=== PATIENT | female | born 1985 | race Two or more races ===

== ENCOUNTER → 2019-06-21 | Outpatient (CLI) | payer MEDICAID ==
[~2019-06-21] VITALS: Ht 157.5 cm; Wt 72.6 kg
[~2019-06-21] MED LIST: LACTATED RINGER'S 1,000 ML IV SCH; MEPERIDINE HCL (25 MG/ML) 1ML VIAL ONE; MIDAZOLAM HCL 1MG/1ML-2 ML VIAL ONE; ONDANSETRON HCL 4 MG/2 ML VIAL IV PRN; ONDANSETRON HCL 4 MG/2 ML VIAL ONE; PROPOFOL 10 MG/ML 20 ML IV ONE; ROCURONIUM 10MG/ML 10ML VIAL IV ONE; SODIUM CHLORIDE LOCK 0 ML ONE; fentaNYL CITRATE 100 MCG/2 ML VL ONE
[2019-06-21 15:30] LABS: Basophils # (auto) 0 uL; Basophils % (auto) 0.5 % (0.0-2.0); Eosinophils # (auto) 0.1 uL; Lymphocytes # (auto) 2.1 uL; Monocytes # (auto) 0.3 uL; Neutrophils # (auto) 3.3 uL; White Blood Cell 5.8 10^3/uL (4.4-10.8)
[2019-06-21 15:32] LABS: Urine Bacteria NONE SEEN /hpf (None Seen); Urine Blood Negative /uL (Negative); Urine Specific Gravity 1.021 (1.001-1.035); Urine WBC 1 /hpf (0 - 5)
[2019-06-21 15:39] LABS: INR 0.94 (0.9-1.15); Partial Thromboplastin Time 24.8 sec (23.64-32.05)
[2019-06-21 15:46] LABS: Albumin 3.4 g/dL (3.4-5.0); Potassium 4.3 mmol/L (3.5-5.1)
[2019-06-21 15:50] LABS: Bilirubin, Total 0.3 mg/dL (0.2-1.0); Total Protein 8.1 g/dL (6.4-8.2)
[2019-06-21 16:00] LABS: Eosinophils % (auto) 1.5 % (0.0-7.0); Hematocrit 41.4 % (36.0-46.0); Hemoglobin 13.6 g/dL (12.2-16.2); Lymphocytes % (auto) 36.7 % (10.0-50.0); Mean Corpuscular Hemoglobin 28.2 pg (28.0-32.0); Mean Corpuscular Hgb Conc. 32.8 g/dL (32.0-36.0); Monocytes % (auto) 5.3 % (0.0-12.0); Platelet Count (auto) 231 10^3/uL (140-450); Red Blood Cells 4.82 10^6/uL (4.0-5.20)
== END | disposition home or self-care (01) ==
LOC: SUR 15:01 → EDSTATUS 06-23 15:45
PROVIDERS: ATTEND Obstetrics & Gynecology
DX: Z30.2 Encounter for sterilization (principal); M79.89 Other specified soft tissue disorders; N39.0 Urinary tract infection, site not specified; D53.8 Other specified nutritional anemias; Z98.891 History of uterine scar from previous surgery
CPT/HCPCS: 36415; 80053; 81001; 84702; 85025; 85610; 85730; 87086; J2250; J2405; J2704